=== PATIENT | female | born 1965 | race Two or more races ===

== ENCOUNTER 2020-01-05 13:38 | Inpatient (IN) | payer OTHER ==
[~2020-01-05] VITALS: Ht 160 cm; Wt 73.1 kg
[2020-01-05] MEDS ORDERED: SODIUM CHLORIDE 0.9% 1,000 ML IV ONE ×2 (14:15)
[2020-01-05] MEDS ORDERED: DexAMETHasone SOD PHOS 10MG/1ML VIAL INJ IV ONE (14:30)
[2020-01-05] MEDS ORDERED: DOXYCYCLINE 100MG/250ML 250 ML IV ONE (15:15)
[2020-01-05] MEDS ORDERED: ZINC SULFATE 220mg CAP or TAB PO ONE (15:15)
[2020-01-05] MEDS ORDERED: ENOXAPARIN SOD 80 MG/0.8ML SYRINGE SC ONE (15:30)
[2020-01-05] MEDS ORDERED: ACETAMINOPHEN 500 MG TAB PO PRN (15:30)
[2020-01-05] MEDS ORDERED: NITROGLYCERIN 0.4 MG SL TAB SL PRN ×2 (15:30)
[2020-01-05] MEDS ORDERED: MORPHINE SULF INJ 2 MG/ML SYRINGE 1ML IV PRN ×3 (15:30)
[2020-01-05] MEDS ORDERED: DEXTROSE (50%) 50ML SYRG IV PRN (15:30)
[2020-01-05] MEDS ORDERED: DOCUSATE SOD 100 MG CAP PO PRN (15:30)
[2020-01-05] MEDS ORDERED: VANCOMYCIN PER PHARMACY 0 MG IV SCH (15:30)
[2020-01-05] MEDS ORDERED: THIAMINE 100mg/ml INJ (200mg/2ml VIAL) IV ONE (15:30)
[2020-01-05] MEDS ORDERED: LORazepam 0.5 MG TAB PO PRN (15:30)
[2020-01-05] MEDS ORDERED: HYDROcodone-ACET 5/325MG TAB PO PRN (15:30)
[2020-01-05] MEDS ORDERED: ONDANSETRON HCL 4 MG/2 ML VIAL IV PRN (15:30)
[2020-01-05] MEDS ORDERED: ALUM & MAG HYDROX-SIMETH LIQ(MAALOX) 30 ML PO PRN (15:30)
[2020-01-05] MEDS ORDERED: PIPERACILLIN-TAZOB 3.375GM 100 ML IV ONE (15:30)
[2020-01-05 15:47] LABS: Albumin 3.2 g/dL (3.4-5.0); Calcium 8.4 mg/dL (8.5-10.1); Potassium 3.9 mmol/L (3.5-5.1)
[2020-01-05 15:51] LABS: BUN/Creatinine Ratio 12.7; Bilirubin, Total 0.4 mg/dL (0.2-1.0); Total Protein 7.2 g/dL (6.4-8.2)
[2020-01-05 15:56] LABS: CRP High Sensitivity 8.3 mg/dL (< 0.3)
[2020-01-05 16:22] LABS: Magnesium 2.4 mg/dL (1.6-2.6)
[2020-01-05 16:25] LABS: Cholesterol 93 mg/dL (< 200); HDL Cholesterol 25 mg/dL (40-59); LDL Cholesterol 51 mg/dL (< 100); Triglycerides 176 mg/dL (< 150)
[2020-01-05] MEDS: ACCU-CHEK COMFORT CURVE STRIP VI SCH ×2 (17:00→22:05)
--- NOTE | 2020-01-05 17:00 | NUR ---
Telemetry admit from [facility] admitted to Telemetry unit after SBAR received. Patient oriented to Neli Ayala, primary RN, unit, room, bed, and unit policies regarding patient care and visiting hours. Patient now on continuous telemetry monitoring, tele box #1 and telemetry reading on arrival to unit is SR @ 98 bpm. Bes set to lowest position/locked, bedside rails up x2, call light within reach. Instructed patient to call for assistance. Patient verbalized understanding. Will continue to monitor q 1hr and prn.
[2020-01-05 17:20] VITALS: BP 114/56
[2020-01-05] MEDS ORDERED: IBUP800T24 PO (17:45)
[2020-01-05] MEDS ORDERED: SITA100T7 PO (17:45)
[2020-01-05] MEDS ORDERED: GLIP10TA9 PO (17:45)
[2020-01-05] MEDS ORDERED: FLUC150T41 PO (17:45)
[2020-01-05] MEDS ORDERED: AMOX500C2 PO (17:45)
[2020-01-05] MEDS ORDERED: METF-371 PO (17:45)
[2020-01-05] MEDS ORDERED: ATOR40TA52 PO (17:45)
[2020-01-05] MEDS: VANCOMYCIN 1GM/250ML 250 ML IV SCH (17:55)
[2020-01-05] MEDS: InsuLIN REG 1unit/0.01ml Soln (100units/ml) SC SCH ×2 (17:58→22:06)
[2020-01-05 18:24] LABS: Basophils # (auto) 0 10 ^3/uL (0-0.2); Basophils % (auto) 0.4 % (0.0-2.0); Eosinophils # (auto) 0 10 ^3/uL (0-0.8); Hematocrit 40.2 % (36.0-46.0); Hemoglobin 13.7 g/dL (12.2-16.2); Lymphocytes # (auto) 0.5 10 ^3/uL (0.4-5.4); Mean Corpuscular Hgb Conc. 34.1 g/dL (32.0-36.0); Monocytes # (auto) 0.1 10 ^3/uL (0-1.3); Monocytes % (auto) 2.5 % (0.0-12.0); Neutrophils # (auto) 3.3 10 ^3/uL (1.6-8.6); Neutrophils % (auto) 85.1 % (37.0-80.0); Platelet Count (auto) 183 10^3/uL (140-450); Red Blood Cells 4.73 10^6/uL (4.0-5.20); Red Cell Distribution Width 12.6 % (11.8-14.3); White Blood Cell 3.9 10^3/uL (4.4-10.8)
[2020-01-05 18:39] VITALS: BP 114/56
[2020-01-05] MEDS: PIPERACILLIN-TAZOB 3.375GM 100 ML IV SCH (18:49)
[2020-01-05 21:24] VITALS: BP 114/56
--- NOTE | 2020-01-05 22:00 | NUR ---
hospitalist Called/paged hospitalist called re:pt blood sugar and clarification on the order for convalescent plasma . Waiting for call back. Continue care. Addendum: 01/06/20 at 2352 by DEVON MCCULLOUGH RN this is for 01/06/20 2013
[2020-01-05] MEDS: methylPREDNISolone SOD SUCC 40 MG/ML VL IV SCH (22:04)
[2020-01-05] MEDS: ENOXAPARIN SOD 80 MG/0.8ML SYRINGE SC SCH (22:05)
[2020-01-05] MEDS: ATORVASTATIN 20 MG TAB PO SCH (22:05)
[2020-01-05] MEDS: BUDESONIDE (INHALATION) 180 MCG IH IN SCH (22:06)
[2020-01-05] MEDS: ALBUTEROL SULF HFA 90MCG INH 200DOSE IN SCH (22:06)
[2020-01-05 22:14] VITALS: BP 109/55
[2020-01-06] MEDS: PIPERACILLIN-TAZOB 3.375GM 100 ML IV SCH ×2 (00:26→05:25)
[2020-01-06] MEDS: VANCOMYCIN 1GM/250ML 250 ML IV SCH (03:53)
[2020-01-06 05:00] VITALS: BP 116/64
[2020-01-06] MEDS: InsuLIN REG 1unit/0.01ml Soln (100units/ml) SC SCH ×4 (05:20→20:53)
[2020-01-06] MEDS: methylPREDNISolone SOD SUCC 40 MG/ML VL IV SCH (05:24)
[2020-01-06] MEDS: ACCU-CHEK COMFORT CURVE STRIP VI SCH ×4 (05:25→20:54)
[2020-01-06 06:24] LABS: Basophils # (auto) 0 10 ^3/uL (0-0.2); Basophils % (auto) 0.3 % (0.0-2.0); Eosinophils # (auto) 0 10 ^3/uL (0-0.8); Hematocrit 41.2 % (36.0-46.0); Hemoglobin 13.8 g/dL (12.2-16.2); Lymphocytes # (auto) 0.7 10 ^3/uL (0.4-5.4); Lymphocytes % (auto) 29.2 % (10.0-50.0); Mean Corpuscular Hemoglobin 28.8 pg (28.0-32.0); Mean Corpuscular Hgb Conc. 33.6 g/dL (32.0-36.0); Monocytes # (auto) 0.1 10 ^3/uL (0-1.3); Monocytes % (auto) 4.4 % (0.0-12.0); Neutrophils # (auto) 1.7 10 ^3/uL (1.6-8.6); Neutrophils % (auto) 66.1 % (37.0-80.0); Nucleated Red Blood Cells % 0.1 %; Platelet Count (auto) 195 10^3/uL (140-450); Red Blood Cells 4.79 10^6/uL (4.0-5.20); Red Cell Distribution Width 12.5 % (11.8-14.3); White Blood Cell 2.5 10^3/uL (4.4-10.8)
--- NOTE | 2020-01-06 06:37 | NUR ---
End of shift note will endorse pt care to day shift RN. PT AOX4, NO S/S OF DISTRESS OR SOB.
[2020-01-06 06:46] LABS: Potassium 3.7 mmol/L (3.5-5.1)
[2020-01-06 06:55] LABS: Albumin 2.9 g/dL (3.4-5.0); BUN/Creatinine Ratio 16.4; Bilirubin, Total 0.3 mg/dL (0.2-1.0); Calcium 8.3 mg/dL (8.5-10.1); Total Protein 6.6 g/dL (6.4-8.2)
--- NOTE | 2020-01-06 07:30 | NUR ---
OPENING NOTE ASSUMED CARE OF PT. ALERT AND ORIENTED. NO S/S PF SOB/DISTRESS NOTED. BED SET TO LOWEST POSITION/LOCKED. BEDSIDE RIALS UP X2. CALL LIGHT WITHIN REACH. INSTRUCTED PT TO CALL FOR ASSISTANCE. UPDATED ON POC. PT VERBALIZED UNDERSTANDING. WILL CONTINUE TO MONITOR Q1HR AND PRN.
[2020-01-06] MEDS: BUDESONIDE (INHALATION) 180 MCG IH IN SCH ×2 (08:04→22:26)
[2020-01-06] MEDS: ALBUTEROL SULF HFA 90MCG INH 200DOSE IN SCH ×4 (08:04→22:26)
[2020-01-06 09:00] VITALS: BP 117/69
[2020-01-06] MEDS ORDERED: THIAMINE 100mg/ml INJ (200mg/2ml VIAL) IV SCH (10:00)
[2020-01-06] MEDS: ASPirin 81 mg TAB PO SCH (11:02)
[2020-01-06] MEDS: ZINC SULFATE 220mg CAP or TAB PO SCH (11:02)
[2020-01-06] MEDS: CHOLECALCIFEROL (VITD3) 2,000 UNIT CAP PO SCH (11:02)
[2020-01-06] MEDS: ASCORBIC ACID 1,000 MG TAB PO SCH (11:02)
[2020-01-06] MEDS: ENOXAPARIN SOD 80 MG/0.8ML SYRINGE SC SCH ×2 (11:03→20:55)
[2020-01-06] MEDS ORDERED: cefTRIAXone 1GM/50ML D5W 50 ML IV ONE ×2 (11:30→13:15)
[2020-01-06 12:00] VITALS: BP 126/66
[2020-01-06] MEDS: DOXYCYCLINE 100MG/250ML 250 ML IV SCH ×2 (12:08→20:55)
[2020-01-06] MEDS ORDERED: POTASSIUM CHL 10 Meq TABLET PO ONE (12:15)
[2020-01-06] MEDS ORDERED: FUROSEMIDE 20 MG/2 ML VIAL IV ONE (12:15)
--- NOTE | 2020-01-06 12:19 | NUR ---
BLOOD GLUCOSE PATIENT BG 452 MG/DL. PAGED DR. JIN. AWAITING CALL BACK. SPOKE TO DR. JIN RE: BG NEW ORDERS GIVEN/CARRIED OUT.
[2020-01-06] MEDS ORDERED: INSULIN LANTUS (GLARGINE) 1 /0.01ml (100units/ml) SC ONE ×2 (12:45)
[2020-01-06 14:01] LABS: Urine Bacteria NONE SEEN /hpf (None Seen); Urine Blood Negative /uL (Negative); Urine Budding Yeast OCCASIONAL /hpf (None Seen); Urine Specific Gravity 1.014 (1.001-1.035); Urine WBC 1 /hpf (0 - 5)
[2020-01-06 14:14] LABS: Amphetamine Screen, Urine NEGATIVE (NEGATIVE); Barbiturate Scree,Urine NEGATIVE (NEGATIVE); Benzodiazephine Screen, Urine NEGATIVE (NEGATIVE); Cannabinoid Screen, Urine NEGATIVE (NEGATIVE); Cocaine Screen, Urine NEGATIVE (NEGATIVE); Opiate Scree,Urine NEGATIVE (NEGATIVE); Phencyclidine Screen, Urine NEGATIVE (NEGATIVE)
[2020-01-06 16:59] VITALS: BP 122/66
[2020-01-06] MEDS ORDERED: REMDESIVIR 200 MG in NS 210ml LOADING DOSE ADULT IV ONE (17:00)
--- NOTE | 2020-01-06 17:30 | NUR ---
REMDESIVIR PRE-INFUSION VS BP:121/64 [facility] HR: 75 BPM SPO2: 94%
[2020-01-06] MEDS: metFORMIN HYDROCHLORIDE 850 MG TAB PO SCH ×2 (17:44→17:57)
--- NOTE | 2020-01-06 17:45 | NUR ---
BLOOD GLUCOSE PATIENT BLOOD GLUCOSE 492 MG/DL. INITIATED PROTOCOL. PAGED HOSPITALIST. AWAITING CALL BACK.
--- NOTE | 2020-01-06 17:45 | NUR ---
REMDESIVIR 15 MIN-INFUSION VS BP:119/64 [facility] HR: 75 BPM SPO2: 94%
--- NOTE | 2020-01-06 18:30 | NUR ---
REMDESIVIR POST-INFUSION VS BP: 120/69 [facility] HR: 84 BPM SPO2: 91%
[2020-01-06] MEDS: INSULIN LANTUS (GLARGINE) 1 /0.01ml (100units/ml) SC SCH (20:54)
[2020-01-06] MEDS: ATORVASTATIN 20 MG TAB PO SCH (20:54)
[2020-01-06 21:36] VITALS: BP 115/63
--- NOTE | 2020-01-06 22:45 | NUR ---
second paged to hospitalist hospitalist called re:pt blood sugar and clarification on the order for convalescent plasma . Waiting for call back. Continue care.
[2020-01-07] VITALS (8 sets, daily range): BP systolic 97–115; BP diastolic 47–66
--- NOTE | 2020-01-07 00:12 | NUR ---
hospitalist returned call Dr. Hadley returned call and order clarify to give two convalescent plasma as order and new order receive regarding pt blood sugar. order read back and verify by dr. Hadley
[2020-01-07] MEDS ORDERED: DEXTROSE (50%) 50ML SYRG IV PRN (01:00)
[2020-01-07] MEDS: INSULIN LANTUS (GLARGINE) 1 /0.01ml (100units/ml) SC SCH ×2 (05:42→21:36)
[2020-01-07] MEDS: InsuLIN REG 1unit/0.01ml Soln (100units/ml) SC SCH ×4 (05:43→21:38)
[2020-01-07] MEDS: ACCU-CHEK COMFORT CURVE STRIP VI SCH ×4 (05:43→21:36)
--- NOTE | 2020-01-07 07:10 | NUR ---
End of shift note will endorse pt care to day shift RN. PT AOX4, NO S/S OF DISTRESS OR SOB.
[2020-01-07] MEDS: metFORMIN HYDROCHLORIDE 850 MG TAB PO SCH ×2 (08:00→17:41)
[2020-01-07] MEDS: BUDESONIDE (INHALATION) 180 MCG IH IN SCH ×2 (09:37→22:46)
[2020-01-07] MEDS: ALBUTEROL SULF HFA 90MCG INH 200DOSE IN SCH ×3 (09:41→22:45)
[2020-01-07] MEDS: cefTRIAXone 1GM/50ML D5W 50 ML IV SCH (09:47)
[2020-01-07] MEDS: DexAMETHasone SOD PHOS 10MG/1ML VIAL INJ IV SCH (09:48)
[2020-01-07] MEDS: ASPirin 81 mg TAB PO SCH (09:48)
[2020-01-07] MEDS: ZINC SULFATE 220mg CAP or TAB PO SCH (09:49)
[2020-01-07] MEDS: POTASSIUM CHL 10 Meq TABLET PO SCH (09:49)
[2020-01-07] MEDS: ASCORBIC ACID 1,000 MG TAB PO SCH (09:50)
[2020-01-07] MEDS: ENOXAPARIN SOD 40 MG/0.4 ML SYRINGE SC SCH (09:50)
[2020-01-07] MEDS: CHOLECALCIFEROL (VITD3) 2,000 UNIT CAP PO SCH (09:50)
[2020-01-07] MEDS ORDERED: FUROSEMIDE 20 MG/2 ML VIAL IV SCH (10:00)
[2020-01-07] MEDS: DOXYCYCLINE 100MG/250ML 250 ML IV SCH (11:49)
--- NOTE | 2020-01-07 14:03 | NUR ---
Respiratory note: PT PLACED ON BEDSIDE PULSE OX DUE TO BEING TAKEN OFF TELE MONITOR. PT WAS ON 12 LPM OXYMIZER AND DECREASED TO 10 LPM OXYMIZER.
[2020-01-07] MEDS ORDERED: FUROSEMIDE 40 MG/4 ML VIAL IV ONE (14:45)
--- NOTE | 2020-01-07 15:43 | NUR ---
IV IV insertion IV access obtained, via clean sterile technique by inserting 20 gauge catheter at left AC after 2 attempt(s). IV secured properly. No trauma to site. Patient tolerated well. IV removal IV DC'd with clean sterile technique, catheter fully intact. Pressure dressing applied to site. Patient tolerated well.
[2020-01-07] MEDS: REMDESIVIR 100mg in NS 230ml DAILYx4DAYS (NO VENT) IV SCH (16:40)
--- NOTE | 2020-01-07 16:50 | NUR ---
REMDESIVIR PRE-INFUSION VS BP:115/54 [facility] HR: 64 BPM SPO2: 97%
--- NOTE | 2020-01-07 17:05 | NUR ---
REMDESIVIR 15 MIN-INFUSION VS BP:110/45 [facility] HR: 63 BPM SPO2: 97%
--- NOTE | 2020-01-07 17:55 | NUR ---
REMDESIVIR POST-INFUSION VS BP: 111/57 [facility] HR: 64 BPM SPO2: 97%
[2020-01-07] MEDS: DOXYCYCLINE 100 MG TAB/CAP PO SCH (21:35)
[2020-01-07] MEDS: ATORVASTATIN 20 MG TAB PO SCH (21:35)
[2020-01-08 05:38] VITALS: BP 124/51
[2020-01-08] MEDS: ACCU-CHEK COMFORT CURVE STRIP VI SCH ×4 (06:30→21:14)
[2020-01-08] MEDS: INSULIN LANTUS (GLARGINE) 1 /0.01ml (100units/ml) SC SCH ×2 (06:31→21:29)
[2020-01-08] MEDS: InsuLIN REG 1unit/0.01ml Soln (100units/ml) SC SCH ×4 (06:31→21:30)
[2020-01-08] MEDS: BUDESONIDE (INHALATION) 180 MCG IH IN SCH ×2 (07:30→21:50)
[2020-01-08] MEDS: ALBUTEROL SULF HFA 90MCG INH 200DOSE IN SCH ×3 (07:30→21:50)
[2020-01-08 07:32] LABS: Basophils # (auto) 0 10 ^3/uL (0-0.2); Basophils % (auto) 0.2 % (0.0-2.0); Eosinophils # (auto) 0 10 ^3/uL (0-0.8); Hematocrit 40.2 % (36.0-46.0); Hemoglobin 13.6 g/dL (12.2-16.2); Lymphocytes # (auto) 1.4 10 ^3/uL (0.4-5.4); Lymphocytes % (auto) 30.9 % (10.0-50.0); Mean Corpuscular Hemoglobin 28.8 pg (28.0-32.0); Mean Corpuscular Hgb Conc. 33.7 g/dL (32.0-36.0); Mean Corpuscular Volume 85.5 fL (80.0-100.0); Monocytes # (auto) 0.6 10 ^3/uL (0-1.3); Monocytes % (auto) 12.8 % (0.0-12.0); Neutrophils # (auto) 2.5 10 ^3/uL (1.6-8.6); Neutrophils % (auto) 56.1 % (37.0-80.0); Nucleated Red Blood Cells % 0.1 %; Platelet Count (auto) 252 10^3/uL (140-450); Red Blood Cells 4.71 10^6/uL (4.0-5.20); Red Cell Distribution Width 12.7 % (11.8-14.3); White Blood Cell 4.5 10^3/uL (4.4-10.8)
[2020-01-08 07:41] LABS: Potassium 3.7 mmol/L (3.5-5.1)
[2020-01-08 07:53] LABS: BUN/Creatinine Ratio 36.4; Calcium 8.8 mg/dL (8.5-10.1); Phosphorus 4.5 mg/dL (2.5-4.90)
[2020-01-08 08:30] VITALS: BP 117/58
[2020-01-08] MEDS: CHOLECALCIFEROL (VITD3) 2,000 UNIT CAP PO SCH (10:05)
[2020-01-08] MEDS: ASCORBIC ACID 1,000 MG TAB PO SCH (10:05)
[2020-01-08] MEDS: DOXYCYCLINE 100 MG TAB/CAP PO SCH ×2 (10:05→21:06)
[2020-01-08] MEDS: ENOXAPARIN SOD 40 MG/0.4 ML SYRINGE SC SCH (10:05)
[2020-01-08] MEDS: POTASSIUM CHL 10 Meq TABLET PO SCH (10:06)
[2020-01-08] MEDS: ZINC SULFATE 220mg CAP or TAB PO SCH (10:06)
[2020-01-08] MEDS: DexAMETHasone SOD PHOS 10MG/1ML VIAL INJ IV SCH (10:07)
[2020-01-08] MEDS: cefTRIAXone 1GM/50ML D5W 50 ML IV SCH (10:07)
[2020-01-08] MEDS: ASPirin 81 mg TAB PO SCH (10:07)
[2020-01-08] MEDS: FUROSEMIDE 20 MG/2 ML VIAL IV SCH (10:09)
[2020-01-08] MEDS: metFORMIN HYDROCHLORIDE 850 MG TAB PO SCH ×2 (10:09→10:36)
[2020-01-08 13:18] VITALS: BP 135/94
[2020-01-08] MEDS: REMDESIVIR 100mg in NS 230ml DAILYx4DAYS (NO VENT) IV SCH (16:42)
--- NOTE | 2020-01-08 16:51 | NUR ---
PAGED DR JIN TO NOTIFY HER OF BLOOD SUGAR 420
[2020-01-08 17:14] VITALS: BP 110/59
--- NOTE | 2020-01-08 20:00 | NUR ---
Opening Shift Note Assumed care of patient, awake and alert x4. Patient denies pain or shortness of breath at this time. No sign/symptoms of distress noted or verbalized at this time. Instructed on plan of care and encouraged patient to call for assistance as needed, patient verbalized understanding. Bed is locked in lowest position, side rails x 2 are up, and call light is within reach.
[2020-01-08] MEDS: ATORVASTATIN 20 MG TAB PO SCH (21:06)
[2020-01-08 21:43] VITALS: BP 116/52
[2020-01-09] VITALS (9 sets, daily range): BP systolic 104–126; BP diastolic 53–64
[2020-01-09] MEDS: ACCU-CHEK COMFORT CURVE STRIP VI SCH ×4 (05:35→21:29)
[2020-01-09] MEDS: INSULIN LANTUS (GLARGINE) 1 /0.01ml (100units/ml) SC SCH ×2 (05:46→21:33)
[2020-01-09] MEDS: InsuLIN REG 1unit/0.01ml Soln (100units/ml) SC SCH ×4 (05:46→21:33)
--- NOTE | 2020-01-09 05:47 | NUR ---
EKG Performed EKG performed and placed in hardchart as ordered by .
[2020-01-09] MEDS: ALBUTEROL SULF HFA 90MCG INH 200DOSE IN SCH ×3 (07:21→21:24)
[2020-01-09] MEDS: BUDESONIDE (INHALATION) 180 MCG IH IN SCH ×2 (07:21→21:23)
[2020-01-09] MEDS: metFORMIN HYDROCHLORIDE 850 MG TAB PO SCH ×2 (08:00→18:11)
[2020-01-09 08:04] LABS: Basophils # (auto) 0 10 ^3/uL (0-0.2); Basophils % (auto) 0.2 % (0.0-2.0); Eosinophils # (auto) 0 10 ^3/uL (0-0.8); Eosinophils % (auto) 0.1 % (0.0-7.0); Hematocrit 40.9 % (36.0-46.0); Hemoglobin 13.4 g/dL (12.2-16.2); Lymphocytes # (auto) 1.6 10 ^3/uL (0.4-5.4); Lymphocytes % (auto) 30.5 % (10.0-50.0); Mean Corpuscular Hgb Conc. 32.8 g/dL (32.0-36.0); Mean Corpuscular Volume 85.4 fL (80.0-100.0); Monocytes # (auto) 0.6 10 ^3/uL (0-1.3); Monocytes % (auto) 10.4 % (0.0-12.0); Neutrophils # (auto) 3.2 10 ^3/uL (1.6-8.6); Neutrophils % (auto) 58.8 % (37.0-80.0); Nucleated Red Blood Cells % 0.1 %; Platelet Count (auto) 264 10^3/uL (140-450); Red Blood Cells 4.78 10^6/uL (4.0-5.20); Red Cell Distribution Width 12.3 % (11.8-14.3); White Blood Cell 5.4 10^3/uL (4.4-10.8)
[2020-01-09 08:22] LABS: Albumin 2.9 g/dL (3.4-5.0); Calcium 8.3 mg/dL (8.5-10.1); Potassium 3.9 mmol/L (3.5-5.1)
[2020-01-09 08:25] LABS: BUN/Creatinine Ratio 37.7; Bilirubin, Total 0.3 mg/dL (0.2-1.0); Total Protein 6.4 g/dL (6.4-8.2)
[2020-01-09] MEDS: cefTRIAXone 1GM/50ML D5W 50 ML IV SCH (09:08)
[2020-01-09] MEDS: DexAMETHasone SOD PHOS 10MG/1ML VIAL INJ IV SCH (09:08)
[2020-01-09] MEDS: ASPirin 81 mg TAB PO SCH (09:09)
[2020-01-09] MEDS: ZINC SULFATE 220mg CAP or TAB PO SCH (09:09)
[2020-01-09] MEDS: POTASSIUM CHL 20 Meq TABLET PO SCH (09:09)
[2020-01-09] MEDS: DOXYCYCLINE 100 MG TAB/CAP PO SCH ×2 (09:09→21:29)
[2020-01-09] MEDS: FUROSEMIDE 20 MG/2 ML VIAL IV SCH (09:09)
[2020-01-09] MEDS: CHOLECALCIFEROL (VITD3) 2,000 UNIT CAP PO SCH (09:10)
[2020-01-09] MEDS: ENOXAPARIN SOD 40 MG/0.4 ML SYRINGE SC SCH (09:10)
[2020-01-09] MEDS: ASCORBIC ACID 1,000 MG TAB PO SCH (09:10)
--- NOTE | 2020-01-09 12:40 | NUR ---
Nutrition Assessment Est energy needs 5834-3517 kcal (25-27 kcal/kg BW 74.4kg) Est protein needs 59-74g (0.8-1g/kg BW 74kg) Will reassess prn. Addendum: 01/09/20 at [address] Amended: Links added.
[2020-01-09] MEDS: REMDESIVIR 100mg in NS 230ml DAILYx4DAYS (NO VENT) IV SCH (17:40)
[2020-01-09] MEDS: ATORVASTATIN 20 MG TAB PO SCH (21:29)
[2020-01-10] VITALS (8 sets, daily range): BP systolic 101–126; BP diastolic 58–64
--- NOTE | 2020-01-10 00:45 | NUR ---
titrated pt down to 3.5L oxymizer, from 5.0L. O2 saturation is 95-97%. will continue to monitor.
[2020-01-10 05:57] LABS: Basophils # (auto) 0.1 10 ^3/uL (0-0.2); Basophils % (auto) 0.8 % (0.0-2.0); Eosinophils # (auto) 0 10 ^3/uL (0-0.8); Eosinophils % (auto) 0.2 % (0.0-7.0); Hemoglobin 14.8 g/dL (12.2-16.2); Lymphocytes # (auto) 2.3 10 ^3/uL (0.4-5.4); Mean Corpuscular Hemoglobin 28.3 pg (28.0-32.0); Mean Corpuscular Hgb Conc. 32.8 g/dL (32.0-36.0); Mean Corpuscular Volume 86.1 fL (80.0-100.0); Monocytes # (auto) 0.4 10 ^3/uL (0-1.3); Monocytes % (auto) 5.7 % (0.0-12.0); Neutrophils # (auto) 4.8 10 ^3/uL (1.6-8.6); Neutrophils % (auto) 63.3 % (37.0-80.0); Platelet Count (auto) 332 10^3/uL (140-450); Red Blood Cells 5.22 10^6/uL (4.0-5.20); Red Cell Distribution Width 12.2 % (11.8-14.3); White Blood Cell 7.5 10^3/uL (4.4-10.8)
[2020-01-10] MEDS: ACCU-CHEK COMFORT CURVE STRIP VI SCH ×4 (06:05→20:07)
[2020-01-10] MEDS: InsuLIN REG 1unit/0.01ml Soln (100units/ml) SC SCH ×4 (06:07→19:55)
[2020-01-10] MEDS: INSULIN LANTUS (GLARGINE) 1 /0.01ml (100units/ml) SC SCH ×2 (06:07→21:51)
[2020-01-10 06:15] LABS: Albumin 3.1 g/dL (3.4-5.0); Calcium 9.2 mg/dL (8.5-10.1); Magnesium 2.5 mg/dL (1.6-2.6); Potassium 3.7 mmol/L (3.5-5.1)
[2020-01-10 06:16] LABS: INR 1.04 (0.9-1.15); Partial Thromboplastin Time 25.4 sec (23.0-31.2)
[2020-01-10 06:17] LABS: BUN/Creatinine Ratio 30.6
[2020-01-10 06:22] LABS: Bilirubin, Total 0.4 mg/dL (0.2-1.0); Phosphorus 4.2 mg/dL (2.5-4.90); Total Protein 7.3 g/dL (6.4-8.2)
--- NOTE | 2020-01-10 07:05 | NUR ---
closing note pt is currently on 2L nasal cannula. no s/s or respiratory distress at this time. o2 saturation is 97-98%. no complaints of pain or discomfort. endorsed care to day shift RN Korey.
[2020-01-10] MEDS: BUDESONIDE (INHALATION) 180 MCG IH IN SCH ×2 (07:37→22:07)
[2020-01-10] MEDS: ALBUTEROL SULF HFA 90MCG INH 200DOSE IN SCH ×3 (07:37→22:07)
[2020-01-10] MEDS: metFORMIN HYDROCHLORIDE 850 MG TAB PO SCH ×2 (08:00→17:45)
[2020-01-10] MEDS: cefTRIAXone 1GM/50ML D5W 50 ML IV SCH (11:13)
[2020-01-10] MEDS: DexAMETHasone SOD PHOS 10MG/1ML VIAL INJ IV SCH (11:13)
[2020-01-10] MEDS: POTASSIUM CHL 20 Meq TABLET PO SCH (11:14)
[2020-01-10] MEDS: ASPirin 81 mg TAB PO SCH (11:14)
[2020-01-10] MEDS: DOXYCYCLINE 100 MG TAB/CAP PO SCH ×2 (11:14→21:50)
[2020-01-10] MEDS: ZINC SULFATE 220mg CAP or TAB PO SCH (11:14)
[2020-01-10] MEDS: ASCORBIC ACID 1,000 MG TAB PO SCH (11:15)
[2020-01-10] MEDS: FUROSEMIDE 20 MG/2 ML VIAL IV SCH (11:16)
[2020-01-10] MEDS: ENOXAPARIN SOD 40 MG/0.4 ML SYRINGE SC SCH (11:16)
[2020-01-10] MEDS: CHOLECALCIFEROL (VITD3) 2,000 UNIT CAP PO SCH (11:16)
--- NOTE | 2020-01-10 15:05 | NUR ---
Maura BOWERS AT BEDSIDE. INFORMED OF PATIENTS DECREASING OXYGEN DEMANDS AND PATIENTS SCHEDULED LAST DOSE OF REMDESIVIR TODAY. INFORMED PATIENTS REPORTS OF FEELING BETTER. RECEIVED ORDER FOR ABG TOMORROW MORNING.
[2020-01-10] MEDS: REMDESIVIR 100mg in NS 230ml DAILYx4DAYS (NO VENT) IV SCH (17:45)
--- NOTE | 2020-01-10 17:45 | NUR ---
JOANN BOWERS REGARDING CRITICAL BLOOD SUGAR. AWAITING CALL BACK.
--- NOTE | 2020-01-10 18:20 | NUR ---
REPAGED SENIOR TABLEAU DEVELOPER AND SPOKE WITH Maura MERCHANT. INFORMED OF PATIENTS CRITICAL BLOOD SUGAR. RECEIVED NEW ORDERS. TORB. SEE EMAR.
[2020-01-10] MEDS ORDERED: DEXTROSE (50%) 50ML SYRG IV PRN (18:30)
[2020-01-10] MEDS ORDERED: InsuLIN REG 1unit/0.01ml Soln (100units/ml) IV ONE (19:00)
[2020-01-10] MEDS: ATORVASTATIN 20 MG TAB PO SCH (21:50)
[2020-01-10] MEDS ORDERED: SODIUM CHLORIDE 0.9% 1,000 ML IV SCH (23:30)
[2020-01-11] MEDS: ACCU-CHEK COMFORT CURVE STRIP VI SCH ×4 (00:36→22:17)
[2020-01-11] MEDS: InsuLIN REG 1unit/0.01ml Soln (100units/ml) SC SCH ×4 (00:37→22:28)
[2020-01-11 05:02] VITALS: BP 105/65
[2020-01-11] MEDS ORDERED: INSULIN LANTUS (GLARGINE) 1 /0.01ml (100units/ml) SC SCH (07:00)
--- NOTE | 2020-01-11 07:06 | NUR ---
closing note pt resting in right lateral position. no s/s of respiratory distress or discomfort. pt is on 2Lnc. o2 saturation is 97%. endorsed care to day shift RN Ambar.
[2020-01-11] MEDS: ALBUTEROL SULF HFA 90MCG INH 200DOSE IN SCH ×3 (07:33→22:01)
[2020-01-11] MEDS: BUDESONIDE (INHALATION) 180 MCG IH IN SCH ×2 (07:33→22:01)
[2020-01-11 08:32] LABS: Basophils # (auto) 0 10 ^3/uL (0-0.2); Basophils % (auto) 0.5 % (0.0-2.0); Eosinophils # (auto) 0.1 10 ^3/uL (0-0.8); Eosinophils % (auto) 0.7 % (0.0-7.0); Hematocrit 41.9 % (36.0-46.0); Lymphocytes # (auto) 2.4 10 ^3/uL (0.4-5.4); Lymphocytes % (auto) 30.7 % (10.0-50.0); Mean Corpuscular Hemoglobin 28.9 pg (28.0-32.0); Mean Corpuscular Hgb Conc. 33.5 g/dL (32.0-36.0); Mean Corpuscular Volume 86.2 fL (80.0-100.0); Monocytes # (auto) 0.5 10 ^3/uL (0-1.3); Monocytes % (auto) 6.5 % (0.0-12.0); Neutrophils # (auto) 4.8 10 ^3/uL (1.6-8.6); Neutrophils % (auto) 61.6 % (37.0-80.0); Nucleated Red Blood Cells % 0.1 %; Platelet Count (auto) 297 10^3/uL (140-450); Red Blood Cells 4.87 10^6/uL (4.0-5.20); Red Cell Distribution Width 12.4 % (11.8-14.3); White Blood Cell 7.7 10^3/uL (4.4-10.8)
[2020-01-11] MEDS: metFORMIN HYDROCHLORIDE 850 MG TAB PO SCH ×2 (08:32→17:45)
[2020-01-11 08:48] LABS: Potassium 3.9 mmol/L (3.5-5.1)
[2020-01-11 08:53] LABS: INR 1.08 (0.9-1.15); Partial Thromboplastin Time 24.8 sec (23.0-31.2)
[2020-01-11 08:58] LABS: Albumin 2.9 g/dL (3.4-5.0); BUN/Creatinine Ratio 40.4; Bilirubin, Total 0.3 mg/dL (0.2-1.0); Calcium 8.5 mg/dL (8.5-10.1); Magnesium 2.4 mg/dL (1.6-2.6); Phosphorus 4.1 mg/dL (2.5-4.90); Total Protein 6.3 g/dL (6.4-8.2)
[2020-01-11 09:00] VITALS: BP 110/58
[2020-01-11] MEDS: ASPirin 81 mg TAB PO SCH (09:39)
[2020-01-11] MEDS: FUROSEMIDE 20 MG/2 ML VIAL IV SCH (09:39)
[2020-01-11] MEDS: cefTRIAXone 1GM/50ML D5W 50 ML IV SCH (09:39)
[2020-01-11] MEDS: DexAMETHasone SOD PHOS 10MG/1ML VIAL INJ IV SCH (09:39)
[2020-01-11] MEDS: ZINC SULFATE 220mg CAP or TAB PO SCH (09:40)
[2020-01-11] MEDS: ASCORBIC ACID 1,000 MG TAB PO SCH (09:40)
[2020-01-11] MEDS: CHOLECALCIFEROL (VITD3) 2,000 UNIT CAP PO SCH (09:40)
[2020-01-11] MEDS: DOXYCYCLINE 100 MG TAB/CAP PO SCH ×2 (09:40→22:18)
[2020-01-11] MEDS: POTASSIUM CHL 20 Meq TABLET PO SCH (09:40)
[2020-01-11] MEDS: ENOXAPARIN SOD 40 MG/0.4 ML SYRINGE SC SCH (09:41)
--- NOTE | 2020-01-11 11:41 | NUR ---
Assessment Patient is a 54-year-old female who is alert and oriented. Prior to admission patient lived with family and functioned independently. Per patient she can care for her own ADLs. Per patient she does no use any medical equipment now. Per patient she feels safe returning home. Per patient she will return home to her prior living arrangements post discharge and family will transport her home. Patient states she goes to the [facility]. Advised patient to follow up with doctor upon d/c day. Informed patient she has the right to participate in all discharge planning. Patient verbalized understanding and agreed to discharge plan. Addendum: 01/11/20 at 1142 by RUSTY OSUNA Amended: Links added.
[2020-01-11] MEDS ORDERED: DEXTROSE (50%) 50ML SYRG IV PRN ×2 (12:15→17:30)
[2020-01-11 13:00] VITALS: BP 100/54
[2020-01-11 16:30] VITALS: BP 110/53
[2020-01-11] MEDS ORDERED: ACCU-CHEK COMFORT CURVE STRIP VI SCH (17:00)
[2020-01-11] MEDS ORDERED: InsuLIN REG 1unit/0.01ml Soln (100units/ml) SC SCH (17:00)
--- NOTE | 2020-01-11 17:17 | NUR ---
BLOOD GLUCOSE PATIENT BLOOD GLUCOSE 460 MG/DL. INITIATED PROTOCOL. PAGED HOSPITALIST. AWAITING CALL BACK.
--- NOTE | 2020-01-11 17:24 | NUR ---
HOSPITALIST SPOKE TO BILLY HAMMER RE: BG 460 MG/DL. NEW ORDERS GIVEN/CARRIED.
[2020-01-11 21:16] VITALS: BP 105/54
[2020-01-11] MEDS: ATORVASTATIN 20 MG TAB PO SCH (22:18)
--- NOTE | 2020-01-11 22:28 | NUR ---
Blood sugar: Patients first blood sugar check was critical at 413. Repeated blood sugar check right after and it was 379. Administered insulin per sliding scale. Patient tolerated well.
[2020-01-12] VITALS (7 sets, daily range): BP systolic 99–108; BP diastolic 46–55
[2020-01-12] MEDS: ACCU-CHEK COMFORT CURVE STRIP VI SCH ×4 (06:28→21:55)
[2020-01-12] MEDS: InsuLIN REG 1unit/0.01ml Soln (100units/ml) SC SCH ×4 (06:38→21:51)
[2020-01-12] MEDS: BUDESONIDE (INHALATION) 180 MCG IH IN SCH ×2 (06:42→21:32)
[2020-01-12] MEDS: ALBUTEROL SULF HFA 90MCG INH 200DOSE IN SCH ×3 (06:42→21:32)
--- NOTE | 2020-01-12 06:50 | NUR ---
Closing note: Patient resting in bed with breaths even and unlabored. No s/s of distress sob or pain noted. Will endorse care to day shift nurse.
[2020-01-12] MEDS: metFORMIN HYDROCHLORIDE 850 MG TAB PO SCH ×2 (08:06→17:17)
[2020-01-12] MEDS: cefTRIAXone 1GM/50ML D5W 50 ML IV SCH (08:07)
[2020-01-12] MEDS: ZINC SULFATE 220mg CAP or TAB PO SCH (08:23)
[2020-01-12] MEDS: DexAMETHasone SOD PHOS 10MG/1ML VIAL INJ IV SCH (08:23)
[2020-01-12] MEDS: FUROSEMIDE 20 MG/2 ML VIAL IV SCH (08:23)
[2020-01-12] MEDS: ASPirin 81 mg TAB PO SCH (08:23)
[2020-01-12] MEDS: CHOLECALCIFEROL (VITD3) 2,000 UNIT CAP PO SCH (08:24)
[2020-01-12] MEDS: ASCORBIC ACID 1,000 MG TAB PO SCH (08:24)
[2020-01-12] MEDS: POTASSIUM CHL 20 Meq TABLET PO SCH (08:24)
[2020-01-12] MEDS: DOXYCYCLINE 100 MG TAB/CAP PO SCH ×2 (08:24→21:55)
[2020-01-12] MEDS: ENOXAPARIN SOD 40 MG/0.4 ML SYRINGE SC SCH (08:24)
--- NOTE | 2020-01-12 12:26 | NUR ---
Nutrition Followup Note Wt 73.1kg Pt is still covid positive in the covid isolation wing. Pt is with a CCHO 75g diet with a good appetite aeb pt with 100% po intake since admission per RN note. Consider changing diet to CCHO 60g Est energy needs 1401-4114 kcal (25-27 kcal/kg BW 74.4kg) Est protein needs 59-74g (0.8-1g/kg BW 74kg) Will reassess prn. Labs: GLUC 188H, BUN 19H, Creat 0.47L, Alb 2.9L BM: Pt with 1 BM 01/11 per RN note Skin: BS 20 low risk PES: Overweight r/t caloric intake in excess of needs aeb pt with a BMI of 29.1kg/m2 Comments 1) Continue to monitor po intake, labs, skin 2) refer pt to [facility] on DC 3) Continue current plan of care Expected Outcomes/Goals: 1) pt po intake >75% 2) pt to maintain wt while in hospital 3) f/u 3-5 days
[2020-01-12] MEDS ORDERED: CHOL1CAP47 PO (15:33)
[2020-01-12] MEDS ORDERED: ASPI81CH43 PO (15:33)
[2020-01-12] MEDS ORDERED: ZINC220T6 PO (15:33)
[2020-01-12] MEDS ORDERED: ASCO10003 PO (15:33)
[2020-01-12] MEDS ORDERED: DEX4T PO (15:33)
[2020-01-12] MEDS ORDERED: ALBUAER3 IN (15:33)
--- NOTE | 2020-01-12 15:43 | NUR ---
Received call from Pharmacist at [facility] regarding electronic prescription, this rn confirmed with Dr White prescription for ASA tablet and Dexamethasone is 6mg x3 days starting tomorrow. I informed primary rn Ambar
[2020-01-12] MEDS: glipiZIDE 5 MG TAB PO SCH (17:18)
[2020-01-12] MEDS: ATORVASTATIN 20 MG TAB PO SCH (21:55)
[2020-01-12] MEDS ORDERED: INSULIN LANTUS (GLARGINE) 1 /0.01ml (100units/ml) SC SCH (22:00)
[2020-01-13 05:00] VITALS: BP 111/55
[2020-01-13] MEDS: InsuLIN REG 1unit/0.01ml Soln (100units/ml) SC SCH ×3 (06:26→16:59)
[2020-01-13] MEDS: ACCU-CHEK COMFORT CURVE STRIP VI SCH ×3 (06:26→16:58)
[2020-01-13] MEDS: glipiZIDE 5 MG TAB PO SCH (06:27)
[2020-01-13 07:21] LABS: Basophils # (auto) 0.1 10 ^3/uL (0-0.2); Basophils % (auto) 0.5 % (0.0-2.0); Eosinophils # (auto) 0.1 10 ^3/uL (0-0.8); Eosinophils % (auto) 0.8 % (0.0-7.0); Hematocrit 44.3 % (36.0-46.0); Hemoglobin 14.9 g/dL (12.2-16.2); Lymphocytes # (auto) 3.1 10 ^3/uL (0.4-5.4); Lymphocytes % (auto) 24.8 % (10.0-50.0); Mean Corpuscular Hemoglobin 28.7 pg (28.0-32.0); Mean Corpuscular Hgb Conc. 33.7 g/dL (32.0-36.0); Mean Corpuscular Volume 85.1 fL (80.0-100.0); Monocytes # (auto) 0.7 10 ^3/uL (0-1.3); Monocytes % (auto) 5.9 % (0.0-12.0); Neutrophils # (auto) 8.5 10 ^3/uL (1.6-8.6); Platelet Count (auto) 354 10^3/uL (140-450); Red Cell Distribution Width 12.1 % (11.8-14.3); White Blood Cell 12.5 10^3/uL (4.4-10.8)
[2020-01-13 07:28] LABS: Calcium 8.7 mg/dL (8.5-10.1); Potassium 3.4 mmol/L (3.5-5.1)
[2020-01-13 07:30] LABS: BUN/Creatinine Ratio 47.6
--- NOTE | 2020-01-13 07:30 | NUR ---
Opening Shift Note RECEIVED REPORT FROM NOC RN. Assumed care of patient, awake and alert. PATIENT ON OXYGEN AT 2 LPM VIA NASAL CANNULA WITH no S/S of distress/SOB or pain. BED IN LOWEST, LOCKED POSITION WITH SIDERAILS UP x2 AND CALL LIGHT WITHIN REACH. Instructed on POC and to call for assist PRN, will continue to monitor for changes Q1hr and PRN.
[2020-01-13] MEDS: BUDESONIDE (INHALATION) 180 MCG IH IN SCH (07:37)
[2020-01-13] MEDS: ALBUTEROL SULF HFA 90MCG INH 200DOSE IN SCH ×2 (07:37→14:32)
[2020-01-13] MEDS: metFORMIN HYDROCHLORIDE 850 MG TAB PO SCH (08:26)
[2020-01-13 08:42] VITALS: BP 106/57
[2020-01-13] MEDS: cefTRIAXone 1GM/50ML D5W 50 ML IV SCH (09:55)
[2020-01-13] MEDS: ZINC SULFATE 220mg CAP or TAB PO SCH (09:56)
[2020-01-13] MEDS: ASPirin 81 mg TAB PO SCH (09:56)
[2020-01-13] MEDS: POTASSIUM CHL 20 Meq TABLET PO SCH (09:56)
[2020-01-13] MEDS: DexAMETHasone SOD PHOS 10MG/1ML VIAL INJ IV SCH (09:56)
[2020-01-13] MEDS: DOXYCYCLINE 100 MG TAB/CAP PO SCH (09:57)
[2020-01-13] MEDS: ASCORBIC ACID 1,000 MG TAB PO SCH (09:57)
[2020-01-13] MEDS: ENOXAPARIN SOD 40 MG/0.4 ML SYRINGE SC SCH (09:58)
[2020-01-13] MEDS: CHOLECALCIFEROL (VITD3) 2,000 UNIT CAP PO SCH (09:58)
[2020-01-13] MEDS ORDERED: FUROSEMIDE 20 MG TAB PO SCH (10:00)
[2020-01-13] MEDS ORDERED: INSLANTI SC (10:02)
[2020-01-13] MEDS ORDERED: PANT40TA2 PO (12:53)
[2020-01-13 13:13] VITALS: BP 102/48
[2020-01-13 14:40] VITALS: BP 102/48
--- NOTE | 2020-01-13 15:52 | NUR ---
D/C Planning Per social service consult for home oxygen at 2 l/min. Faxed clinical information to [facility] and [facility]. [facility] is not contracted with patient health plan. Per Tamara Holt with [employer] Ph: [phone]
--- NOTE | 2020-01-13 15:53 | NUR ---
D/C Planning Per social service consult for home oxygen at 2 l/min. Faxed clinical information to [facility] and [facility]. [facility] is not contracted with patient health plan. Per Tamara Holt with [facility] order has been received and they will deliver portable oxygen to the front lobby between 16:30-6:30pm and concentrate oxygen to patient home. Informed [employer]. GRACE Ayala will obtain authorization from health plan.
[2020-01-13 16:49] VITALS: BP 107/54
--- NOTE | 2020-01-13 18:13 | NUR ---
Discharge instructions given as ordered. Encourage to follow up with PMD as instructed. All questions and concerns addressed. Patient verbalized understanding. Medication reconciliation form completed and copy given to patient. IV removed with catheter intact, pressure dressing applied. Telemetry unit returned to ICU. Patient taken to vehicle via wheelchair with all personal belongings, accompanied by staff. No distress noted at time of departure.
== END 2020-01-13 18:11 | disposition home or self-care (01) | DRG 871 ==
LOC: EDBD 13:38 → ER 13:38 → TELE-EAST 13:39 → EAST 01-07 19:31 → TELE-EAST 01-11 08:52
PROVIDERS: ADMIT Hospitalist; ATTEND Internal Medicine
PROC: XW033E5 Introduction of Remdesivir Anti-infective into Peripheral Vein, Percutaneous Approach, New Technology Group 5 (ICD-10-PCS; principal; 2020-01-07)
PROC: XW13325 Transfusion of Convalescent Plasma (Nonautologous) into Peripheral Vein, Percutaneous Approach, New Technology Group 5 (ICD-10-PCS; 2020-01-07)
DX: A41.89 Other specified sepsis (principal); U07.1 COVID-19; J12.89 Other viral pneumonia; J96.01 Acute respiratory failure with hypoxia; N17.0 Acute kidney failure with tubular necrosis; E44.0 Moderate protein-calorie malnutrition; E11.65 Type 2 diabetes mellitus with hyperglycemia; E78.5 Hyperlipidemia, unspecified; E66.9 Obesity, unspecified; R65.20 Severe sepsis without septic shock; Z91.81 History of falling; Z79.84 Long term (current) use of oral hypoglycemic drugs; Z68.29 Body mass index [BMI] 29.0-29.9, adult
CPT/HCPCS: 36415; 36600; 71045; 80048; 80053; 80061; 80307; 81001; 82728; 82805; 82962; 83036; 83605; 83615; 83735; 84100; 84443; 84484; 85025; 85379; 85610; 85730; 86141; 86850; 86900; 86901; 87086; 87426; 93005; 94640; 96361; 96365; 96372; 96375; 99291; G0378; J0696; J1100; J1815; J2543; J3490